=== PATIENT | female | born 1985 | race Caucasian/White ===

== ENCOUNTER 2017-02-06 19:14 | Emergency (ER) | payer OTHER ==
[~2017-02-06] VITALS: Ht 154.9 cm; Wt 54.5 kg
[2017-02-06] MEDS ORDERED: BACTRIM DS1 TAB PO (22:35)
[2017-02-06] MEDS ORDERED: CEPHALEXIN500 MG PO (22:35)
[2017-02-06] MEDS ORDERED: LORTAB 10-325 M1 TAB PO (22:35)
[2017-02-06 22:50] VITALS: BP 109/67
== END 2017-02-06 22:54 | disposition home or self-care (01) | DRG 605 ==
LOC: ED 19:14
PROC: 0HQGXZZ Repair Left Hand Skin, External Approach (ICD-10-PCS; principal; 2017-02-06)
PROC: 2W3FX1Z Immobilization of Left Hand using Splint (ICD-10-PCS; 2017-02-06)
DX: S61.412A Laceration without foreign body of left hand, initial encounter (principal); W32.0XXA Accidental handgun discharge, initial encounter; Y93.89 Activity, other specified; Y92.009 Unspecified place in unspecified non-institutional (private) residence as the place of occurrence of the external cause

== ENCOUNTER 2017-02-07 20:58 | Emergency (ER) | payer OTHER ==
[~2017-02-07] VITALS: Ht 154.9 cm; Wt 59.8 kg
[~2017-02-07 20:58] MED LIST: BACTRIM DS1 TAB PO; CEPHALEXIN500 MG PO; LORTAB 10-325 M1 TAB PO
[2017-02-07 22:00] VITALS: BP 109/80
== END 2017-02-07 22:00 | disposition home or self-care (01) | DRG 950 ==
LOC: ED 20:58
DX: S61.402D Unspecified open wound of left hand, subsequent encounter (principal); W34.00XD Accidental discharge from unspecified firearms or gun, subsequent encounter